=== PATIENT | male | born 1980 | race Caucasian/White ===

== ENCOUNTER 2016-07-17 14:49 | Emergency (ER) | payer OTHER ==
[2016-07-17 15:06] VITALS: BP 130/76
[2016-07-17] MEDS ORDERED: Dexamethasone 4 MG Tab PO ONE (15:34)
[2016-07-17] MEDS ORDERED: Amoxicillin 500 MG Cap PO ONE (15:35)
--- NOTE | 2016-07-17 15:40 | EDM.PDOC ---
{null, ED HPI GENERAL MEDICAL PROBLEM - General Chief Complaint: ENT Problem Stated Complaint: SICK X 1 DAY Time Seen by Provider: 07/17/16 15:28 Source of Information: Reports: Patient History Limitations: Reports: No Limitations - History of Present Illness INITIAL COMMENTS - FREE TEXT/NARRATIVE: she comes emergency Department today with complaints of fever chills as well as a sore throat and difficulty swallowing. This is been going on for the past day. He does not have any shortness of breath or drooling. He has been able to drink water solids or little more difficult. He has had strep in the past and it feels like he has it again. - Related Data Allergies Allergy/AdvReac Type Severity Reaction Status Date / Time No Known Allergies Allergy Verified 07/17/16 15:10 Home Meds: Home Meds Losartan [Cozaar] 50 mg PO DAILY 07/17/16 [History] Past Medical History Cardiovascular History: Reports: Hypertension - Past Surgical History Musculoskeletal Surgical History: Reports: Other (See Below) Other Musculoskeletal Surgeries/Procedures:: Baltazar in right femur Social & Family History - Tobacco Use Smoking Status *Q: Never Smoker Second Hand Smoke Exposure: No - Caffeine Use Caffeine Use: Reports: Coffee, Soda, Tea - Recreational Drug Use Recreational Drug Use: No ED ROS ENT - Review of Systems Review Of Systems: ROS reveals no pertinent complaints other than HPI. ED EXAM, ENT - Physical Exam Exam: See Below Text/Narrative:: rather obvious foul-smelling breath. General Appearance: Alert, WD/WN, No Apparent Distress Eye Exam: Bilateral Eye: Normal Inspection Ears: Normal External Exam, Normal Canal, Hearing Grossly Normal, Normal TMs Nose: Normal Inspection, Normal Mucousa, No Blood Mouth/Throat: Normal Gums, Normal Lips, Tonsillar Erythema, Tonsillar Exudates, Tonsillar Swelling. No: Drooling, Peritonsillar Mass, Pharyngeal Erythema, Throat Swelling, Tongue Swelling, Uvular Deviation Head: Atraumatic, Normocephalic Neck: Full Range of Motion, Lymphadenopathy (L), Lymphadenopathy (R) Respiratory/Chest: No Respiratory Distress, Lungs Clear, Normal Breath Sounds, No Accessory Muscle Use Cardiovascular: Normal Peripheral Pulses, Regular Rate, Rhythm GI/Abdominal: Normal Bowel Sounds, Soft, Non-Tender (Male) Exam: Deferred Rectal (Males) Exam: Deferred Back: Normal Inspection Extremities: Normal Inspection, Normal Range of Motion Neurological: Alert, Oriented, Normal Cognition Psychiatric: Normal Affect Skin: Warm, Dry, Intact Lymphatic: No Adenopathy Course - Vital Signs Last Recorded V/S: Last Vital Signs Temp 37.2 C 07/17/16 15:05 Pulse 110 H 07/17/16 15:05 Resp 16 07/17/16 15:05 BP 130/76 07/17/16 15:05 Pulse Ox 97 07/17/16 15:05 - Orders/Labs/Meds Meds: Medications Discontinued Medications Generic Name Dose Route Start Last Admin Trade Name Jun PRN Reason Stop Dose Admin Amoxicillin 500 mg 07/17/16 15:35 Amoxil PO 07/17/16 15:36 ONETIME ONE Dexamethasone 8 mg 07/17/16 15:34 Dexamethasone PO 07/17/16 15:35 ONETIME ONE - Re-Assessments/Exams Free Text/Narrative Re-Assessment/Exam: 07/17/16 positive strep screen. Amoxicillin Decadron discharge instructions as below her explained to the patient he was comfortable with this plan and his questions were answered. Departure - Departure Time of Disposition: 15:38 Disposition: Home, Self-Care 01 Condition: good Clinical Impression: Strep pharyngitis - Discharge Information Instructions: Strep Throat, [id number] Forms: ED Department Discharge Additional Instructions: push oral fluids over the next couple of days. Tylenol and/or ibuprofen as needed for pain fever or discomfort. Amoxicillin 500 mg by mouth twice a day x10 days. warm salt water gargles if you feel it is helping your sore throat. Return to emergency Department if any new or worsening symptoms. Fever not controlled by above unable to drink or swallow or drooling. Recheck with primary care provider the next 4-6 days if not improving sooner if worse. - Assessment/Plan Assessment:: Strep throat Plan: push oral fluids over the next couple of days. Tylenol and/or ibuprofen as needed for pain fever or discomfort. Amoxicillin 500 mg by mouth twice a day x10 days. warm salt water gargles if you feel it is helping your sore throat. Return to emergency Department if any new or worsening symptoms. Fever not controlled by above unable to drink or swallow or drooling. Recheck with primary care provider the next 4-6 days if not improving sooner if worse. }
== END 2016-07-17 15:47 | disposition home or self-care (01) ==
LOC: DL.ED 14:49
DX: J02.0 Streptococcal pharyngitis (principal); I10 Essential (primary) hypertension; Z79.899 Other long term (current) drug therapy
CPT/HCPCS: 87430; 87804; 99282